=== PATIENT | male | born 1965 | race Caucasian/White ===

== ENCOUNTER 2019-08-01 12:26 | Emergency (ER) | payer OTHER ==
[~2019-08-01] VITALS: Ht 180.3 cm; Wt 71.2 kg
[~2019-08-01 12:26] MED LIST: IBUPROFEN600 MG PO
== END 2019-08-01 12:55 | disposition home or self-care (01) ==
LOC: ED 12:26
DX: R21 Rash and other nonspecific skin eruption (principal)

== ENCOUNTER 2025-07-12 08:10 | Emergency (ER) | payer OTHER ==
[~2025-07-12] VITALS: Ht 180.3 cm; Wt 64.3 kg
[2025-07-12] MEDS ORDERED: HYDROCODONE/ACETA 5/325 TAB PO ONE (09:00)
[2025-07-12 09:10] VITALS: BP 101/76
== END 2025-07-12 09:10 | disposition home or self-care (01) ==
LOC: ED 08:10
DX: S61.411A Laceration without foreign body of right hand, initial encounter (principal); S00.12XA Contusion of left eyelid and periocular area, initial encounter; W55.12XA Struck by horse, initial encounter; Z88.0 Allergy status to penicillin
CPT/HCPCS: 12002; 99282